=== PATIENT | male | born 1980 | race Caucasian/White ===

== ENCOUNTER 2025-03-07 08:46 | Outpatient (CLI) | payer OTHER, SELFPAY ==
--- NOTE | ~2025-03-07 | XR_ITS ---
XR cervical spine 4-5V 03/07/2025 09:05 Indication: Cervicalgia Procedure: 5 views cervical spine Comparison: No prior studies for comparison. Findings: Vertebral body and disc heights are preserved. No fracture, subluxation or dislocation. No prevertebral soft tissue swelling. No alteration of alignment with flexion/extension. Odontoid process is normal. Lateral masses normally aligned. Lung apices are normal. Impression: 1: No significant abnormality of the cervical spine. Reviewed, dictated and finalized at location O. ER DUMPER Impression: 1: No significant abnormality of the cervical spine.
--- NOTE | ~2025-03-07 | XR_ITS ---
XR thoracic spine 2V 03/07/2025 09:05 Indication: Back pain Procedure: 3 views thoracic spine Comparison: No prior studies for comparison. Findings: There is dextrocurvature of the thoracic spine. Vertebral body heights are maintained. No paraspinal soft tissue abnormality. Surrounding osseous structures within normal limits. Impression: 1: Mild dextrocurvature of the midthoracic spine. Otherwise, no significant abnormality of the thoracic spine. Reviewed, dictated and finalized at location O. [employer] Impression: 1: Mild dextrocurvature of the midthoracic spine. Otherwise, no significant abn ormality of the thoracic spine.
== END 2025-03-07 08:47 | disposition home or self-care (01) ==
LOC: MICIMG 08:51
PROVIDERS: PCP Internal Medicine; Visit Provider Internal Medicine
DX: M43.8X4 Other specified deforming dorsopathies, thoracic region (principal); M54.2 Cervicalgia; G89.29 Other chronic pain
CPT/HCPCS: 72050; 72070